=== PATIENT | male | born 1965 | race Caucasian/White ===

== ENCOUNTER 2025-06-13 10:08 | Emergency (ER) | payer BC, SELFPAY ==
[2025-06-13 10:13] VITALS: BP 163/92; PULSE 97; RESP 18; TEMP 36.7; O2SAT 96; BMI 37.2
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
[2025-06-13 10:26] LABS: Hematocrit 44.4 % (37-53); Hemoglobin 15.00 g/dL (11.27-16.99); Mean Corpuscular HGB Conc 33.8 g/dL (30-55); Mean Corpuscular Hemoglobin 30.2 pg (27-33); Mean Corpuscular Volume 89.3 fl (82-101); Nucleated Red Blood Cells % 0 %; Platelet Count 510 10^3/cmm (157-399); Red Blood Count 4.97 10^6/uL (3.85-5.65); White Blood Count 9.59 10^3/uL (3.29-11.43)
[2025-06-13] MEDS: morphine 4 mg/mL SDV 1 mL IVP (10:30)
[2025-06-13] MEDS: ceFAZolin 2,000 mg SDV 2000 MG IVP (10:30)
[2025-06-13] MEDS: ondansetron 2 mg/ML SDV 2 mL 4 MG IVP (10:30)
[2025-06-13] MEDS: tetanus-dipt-pertussis 0.5 mL SDV IM (10:30)
[2025-06-13 10:33] VITALS: BP 163/92; O2SAT 92
[2025-06-13 10:40] LABS: INR 1.00 (0.8-1.2); Prothrombin Time 13.90 SECONDS (12.1-14.9)
[2025-06-13 10:41] LABS: Partial Thromboplastin Time 26.0 SECONDS (23.9-36.7)
[2025-06-13] MEDS: iohexol 350 mg/mL 500 mL Btl (per mL) IV (10:47)
[2025-06-13 10:49] LABS: Lactic Sepsis W/Reflex 2.9 mmol/L (0.5-2.2)
[2025-06-13 10:50] LABS: Alanine Aminotransferase 46 U/L (0-41); Albumin Level 4.3 g/dL (3.5-5.2); Alkaline Phosphatase 90 U/L (40-130); Anion Gap 15.3 (5-19); Aspartate Amino Transferase 22 U/L (0-40); Blood Urea Nitrogen 11 mg/dL (6-20); Calcium 8.9 mg/dL (8.5-10.5); Carbon Dioxide 23 mmol/L (22-29); Chloride 99 mmol/L (98-107); Creatinine Clr Calc Pharmacy 89.5939; Globulin 2.6 g/dL (1.3-4.6); Glucose 153 mg/dL (65-115); Osmolality Calculated 280 mOsm/kg (285-295); Potassium 3.3 mmol/L (3.5-5.1); Sodium 134 mmol/L (136-145); Total Protein 6.9 g/dL (6.6-8.7)
[2025-06-13 10:56] LABS: Reflex Lactate Order REFLEX LACTIC ORDERD
[2025-06-13 12:13] VITALS: BP 133/89; PULSE 99; O2SAT 97
[2025-06-13 13:20] VITALS: BP 112/75; PULSE 104; RESP 16; O2SAT 96
[2025-06-13 13:33] LABS: Lactic Acid level (Lactate) 2.3 mmol/L (0.5-2.2)
[2025-06-13 14:30] VITALS: BP 134/81; PULSE 106; O2SAT 96
== END 2025-06-13 14:58 | disposition short-term general hospital (02) ==
PROVIDERS: Emergency Provider Emergency Medicine
DX: S72.91XA Unspecified fracture of right femur, initial encounter for closed fracture (principal); W34.00XA Accidental discharge from unspecified firearms or gun, initial encounter
CPT/HCPCS: 36415; 74177; 80053; 83605; 85025; 85610; 85730; 90471; 90715; 96374; 96375; 99285; J0690; J2270; J2405